=== PATIENT | female | born 1995 | race Caucasian/White ===

== ENCOUNTER 2016-11-24 23:03 | Emergency (ER) | payer BC ==
[~2016-11-24] VITALS: Ht 157.5 cm; Wt 112.5 kg
[2016-11-24 23:10] VITALS: BP_SYST 151
--- NOTE | 2016-11-24 23:45 | NUR ---
Patient to ER bed 8 to gown for evaluation. Side rails up. Report given to JOJO PATTON.
--- NOTE | 2016-11-24 23:51 | NUR ---
ER Dr. HALEY at bedside examining patient.
--- NOTE | 2016-11-24 23:52 | NUR ---
PT STATES SHE IS CURRENTLY HAVING HEART PALPITATIONS AND ANXIETY AND CHEST TIGHTNESS, AND IT IS HARD FOR HER TO SWALLOW AND HAS DRY MOUTH. NO N/V/D. NO SOB OR DISTRESS. SAFETY PRECAUTIONS IN PLACE, WILL CONTINUE TO MONITOR.
[2016-11-25] MEDS ORDERED: LORazepam 1 MG TABLET PO ONE
[2016-11-25 00:08] LABS: BASOPHILS # (AUTO) 0.2 K/uL (0.0-0.2); BASOPHILS % (AUTO) 1.5 % (0.0-2.0); EOSINOPHILS % (AUTO) 0.3 % (0.0-4.0); HEMATOCRIT 37.4 % (36-48); HEMOGLOBIN 12.3 g/dL (12.0-16.0); LYMPHOCYTES # (AUTO) 2.4 K/uL (1.0-5.5); LYMPHOCYTES % (AUTO) 22.9 % (20.5-51.5); MEAN CORPUSCULAR HEMOGLOBIN 27 pg (27-31); MEAN CORPUSCULAR HGB CONC 33 % (32-36); MEAN CORPUSCULAR VOLUME 81 fL (79.0-98.0); MONOCYTES # (AUTO) 0.7 K/uL (0.0-1.0); MONOCYTES % (AUTO) 7.2 % (1.7-9.3); NEUTROPHILS # (AUTO) 7.1 K/uL (1.8-7.7); NEUTROPHILS % (AUTO) 68.1 % (40.0-70.0); PLATELET COUNT (AUTO) 302 K/uL (130-430); RED CELL DISTRIBUTION WIDTH 13.6 % (9.0-15.0); WHITE BLOOD COUNT (AUTO) 10.4 K/uL (4.8-10.8)
[2016-11-25 00:17] LABS: CREATININE 1.01 mg/dL (0.55-1.30)
[2016-11-25 00:22] LABS: ALBUMIN 3.7 g/dL (3.4-4.8); TOTAL BILIRUBIN 0.2 mg/dL (0.0-1.0); TOTAL PROTEIN, SERUM 7.4 g/dL (6.4-8.3)
[2016-11-25 00:30] LABS: HCG,QUAL RESULT NEGATIVE (NEGATIVE)
[2016-11-25 00:34] LABS: BILIRUBIN,URINE NEGATIVE (NEGATIVE); BLOOD, URINE NEGATIVE (NEGATIVE); GLUCOSE,URINE NEGATIVE (NEGATIVE); KETONES,URINE NEGATIVE (NEGATIVE); LEUKOCYTE ESTERASE ,URINE NEGATIVE (NEGATIVE); NITRITE, URINE NEGATIVE (NEGATIVE); PROTEIN URINE NEGATIVE (NEGATIVE); UROBILINOGEN,URINE 0.2 (0.2-1.0)
[2016-11-25 00:36] LABS: CLARITY/URINE SLIGHTLY HAZY (CLEAR); COLOR,URINE YELLOW (YELLOW)
[2016-11-25 00:55] VITALS: BP_SYST 151
--- NOTE | 2016-11-25 00:55 | NUR ---
Patient given written and verbal discharge instructions and verbalizes understanding. ER MD HALEY discussed with patient the results and treatment provided. Patient in stable condition. ID arm band removed. Rx of ATIVAN given. Patient educated on pain management and to follow up with PMD. Pain Scale 0/10. Opportunity for questions provided and answered.
== END 2016-11-25 00:55 | disposition home or self-care (01) ==
LOC: SED 23:03
DX: F41.9 Anxiety disorder, unspecified (principal)
CPT/HCPCS: 36415; 80053; 81003; 81025; 84703; 85025; 93005; 99285

== ENCOUNTER 2019-02-26 15:04 | Emergency (ER) | payer BC ==
[~2019-02-26] VITALS: Ht 157.5 cm; Wt 111.1 kg
[2019-02-26 15:18] VITALS: BP_SYST 120
[2019-02-26 17:18] VITALS: BP_SYST 117
== END 2019-02-26 17:16 | disposition home or self-care (01) ==
LOC: SED 15:04
DX: M25.552 Pain in left hip (principal)
CPT/HCPCS: 72170-TC; 73502; 81025; 99283

== ENCOUNTER 2020-05-20 23:33 | Emergency (ER) | payer BC ==
[~2020-05-20] VITALS: Ht 157.5 cm; Wt 120.2 kg
[2020-05-20 23:40] VITALS: BP_SYST 112
[2020-05-21] MEDS: DIPH-TET-PERTUS Vaccine 0.5 ML VIAL (ADACEL) I.M. ONE (00:03)
[2020-05-21 00:12] VITALS: BP_SYST 112
== END 2020-05-21 00:12 | disposition home or self-care (01) ==
LOC: SED 23:33
DX: S90.415A Abrasion, left lesser toe(s), initial encounter (principal); X58.XXXA Exposure to other specified factors, initial encounter; Y93.89 Activity, other specified; Y92.89 Other specified places as the place of occurrence of the external cause; Y99.8 Other external cause status
CPT/HCPCS: 90715; 99283

== ENCOUNTER 2020-07-09 09:46 | Emergency (ER) | payer BC ==
[~2020-07-09] VITALS: Ht 160 cm; Wt 113.4 kg
--- NOTE | 2020-07-09 09:56 | NUR ---
ER Dr. Velez examining patient at this time
[2020-07-09 09:57] VITALS: BP_SYST 148
--- NOTE | 2020-07-09 10:05 | NUR ---
Patient given written and verbal discharge instructions and verbalizes understanding. ER MD discussed with patient the results and treatment provided. Patient in stable condition. ID arm band removed. Rx of motrin, augmentin given. Patient educated on pain management and to follow up with PMD. Pain Scale 0. Opportunity for questions provided and answered. Medication side effect fact sheet provided. Referred to ENT for follow up.
== END 2020-07-09 10:05 | disposition home or self-care (01) ==
LOC: SED 09:46
DX: T17.228A Food in pharynx causing other injury, initial encounter (principal); W22.8XXA Striking against or struck by other objects, initial encounter; Y93.89 Activity, other specified; Y92.89 Other specified places as the place of occurrence of the external cause; Y99.8 Other external cause status
CPT/HCPCS: 99283

== ENCOUNTER 2022-03-28 20:53 | Emergency (ER) | payer BC ==
[~2022-03-28] VITALS: Ht 157.5 cm; Wt 131.5 kg
[2022-03-28 20:56] VITALS: BP_SYST 139
--- NOTE | 2022-03-28 21:02 | NUR ---
PT HERE FOR LACERATION TO LT INDEX FINGER. PT STATED THAT SHE ACCIDENTALLY LACERATE HER FINGER ON A KNIFE, SHE WENT TO URGENT CARE AND WAS TOLD TO GO TO ER. PT ACCOMANIED TO ROOM5, SHE AMBULATED WITH STEADY GAIT. BLEEDING CONTROLLED AT THIS TIME.
--- NOTE | 2022-03-28 21:10 | NUR ---
Patient BIB significant other from home for c/o LAC on 2nd digit of left hand. Patient reports pain 09/15. Patient states "I bought something from home and couldnt find scissors, so I got a small knife and tried to open the plastic. I accidently cut my finger and I was able to stop the bleeding, but I came in because I think I need stitches." Patient A/Ox4, VSS, ambulatory, resp even and unlabored. Patient has bilat cap refill < 3 sec. Patient able to move bilat hands and digits without incidence. No loss of neuro sensory defects noted. Nad noted at this time.
--- NOTE | 2022-03-28 21:11 | NUR ---
VICKY CHUNG at bedside.
[2022-03-28] MEDS ORDERED: LIDOCAINE 1%, 20 ML MDV 20 ML ONE (21:15)
[2022-03-28] MEDS ORDERED: LIDOCAINE 1% 10 MG/ML, 20 ML MDV INJ ONE (21:15)
[2022-03-28] MEDS ORDERED: BACITRACIN 1 GM OINT TP ONE (21:15)
--- NOTE | 2022-03-28 21:40 | NUR ---
Patient has a 1 cm laceration to 2nd digit. Dr. Rayo applied suture #1 using sterile technique. Edges well approximated. Site cleansed with NS. Dressing applied to site. No bleeding noted. Pt tolerated well.
--- NOTE | 2022-03-28 21:40 | NUR ---
ER MD Rayo performing LAC repair at this time.
[2022-03-28 22:00] VITALS: BP_SYST 124
--- NOTE | 2022-03-28 22:00 | NUR ---
Patient given written and verbal discharge instructions and verbalizes understanding. ER MD PAGAN discussed with patient the results and treatment provided. Patient in stable condition. ID arm band removed. Patient educated on pain management and to follow up with PMD. Pain Scale 2/10. Opportunity for questions provided and answered. Patient A/Ox4, VSS, ambulatory, resp even and unlabored. Patient given off work order x2days. NAD noted at this time.
== END 2022-03-28 22:00 | disposition home or self-care (01) ==
LOC: SED 20:53
DX: S61.211A Laceration without foreign body of left index finger without damage to nail, initial encounter (principal); Z79.899 Other long term (current) drug therapy; W26.0XXA Contact with knife, initial encounter; Y93.G3 Activity, cooking and baking; Y92.89 Other specified places as the place of occurrence of the external cause; Y99.8 Other external cause status
CPT/HCPCS: 99282; 12001; J2001

== ENCOUNTER 2022-04-04 11:36 | Emergency (ER) | payer BC ==
[~2022-04-04] VITALS: Ht 157.5 cm; Wt 127.0 kg
--- NOTE | 2022-04-04 11:44 | NUR ---
Pt bib self to ER for wound care check. Pt NAD, pointer finger of left hand with one suture. no signs of infection.
--- NOTE | 2022-04-04 11:45 | NUR ---
ER at bedside examining patient.
[2022-04-04 12:13] VITALS: BP_SYST 121
--- NOTE | 2022-04-04 12:15 | NUR ---
Wound cleansed with normal saline to left pointer finger. patted dry with gauze and applied bacitracin.
--- NOTE | 2022-04-04 12:34 | NUR ---
Patient given written and verbal discharge instructions and verbalizes understanding. ER MD discussed with patient the results and treatment provided. Patient in stable condition. ID arm band removed. Opportunity for questions provided and answered. Medication side effect fact sheet provided.
[2022-04-04 12:37] VITALS: BP_SYST 121
== END 2022-04-04 12:37 | disposition home or self-care (01) ==
LOC: SED 11:36
DX: Z48.00 Encounter for change or removal of nonsurgical wound dressing (principal)
CPT/HCPCS: 99282